=== PATIENT | female | born 1990 | race Caucasian/White ===

== ENCOUNTER → 2016-11-21 | Outpatient (REF) | payer OTHER ==
[~2016-11-21] MED LIST: BENT20TA PO; LORA10TA2 PO
[2016-11-21 14:03] LABS: CONTROL LINE HCG INT CTR LINE PRESENT
[2016-11-21 14:38] LABS: AMYLASE 70 U/L (25-115)
== END ==
LOC: M LAB REF 13:42
PROVIDERS: ATTEND Nurse Practitioner Family
DX: R10.11 Right upper quadrant pain (principal); K59.00 Constipation, unspecified

== ENCOUNTER → 2016-11-24 | Outpatient (REF) | payer OTHER | LOC: M LAB REF 15:40 | PROVIDERS: ATTEND Nurse Practitioner Family | DX: K59.00 Constipation, unspecified (principal) ==

== ENCOUNTER → 2016-12-26 | Outpatient (CLI) | payer OTHER | LOC: M LAB 14:08 | PROVIDERS: ATTEND Internal Medicine Gastroenterology | DX: R19.7 Diarrhea, unspecified (principal) ==

== ENCOUNTER → 2017-04-07 | Outpatient (REF) | payer OTHER ==
[2017-04-08 11:52] LABS: CONTROL LINE MONO INT CTR LINE PRESENT
== END ==
LOC: M LAB REF 16:32
PROVIDERS: ATTEND Nurse Practitioner Family
DX: J02.9 Acute pharyngitis, unspecified (principal)

== ENCOUNTER → 2017-04-11 | Outpatient (CLI) | payer OTHER ==
--- NOTE | 2017-04-12 09:09 | REP ---
Clinical: Acute bronchitis . Comparison: 06/06/2011 . Technique: PA and lateral. Findings: The mediastinum and cardiac silhouette are normal. The lung mccarty are clear and without acute consolidation, effusion, or pneumothorax. The skeletal structures are intact and normal. Impression: 1. No acute cardiopulmonary process. Signed by Philippe Rivas MD 04/11/2017 12:10 P
== END ==
LOC: M ADAMS 11:14
PROVIDERS: ATTEND Physician Assistant Medical
DX: R63.4 Abnormal weight loss (principal)

== ENCOUNTER → 2017-04-11 | Outpatient (REF) | payer OTHER, BC ==
[2017-04-11 12:48] LABS: BASO # 0.1 10^3/uL (0.0-0.2); BASO % 0.6 % (0.0-1.0); EOS # 0.3 10^3/uL (0.0-0.50); EOS % 3.4 % (0.0-3.0); IMMATURE GRANULOCYTE % 0.2 % (0-0); LYMPH % 21.8 % (24.0-44.0); MEAN CORPUSCULAR HEMOGLOBIN 30.3 pg (27.0-33.0); MEAN CORPUSCULAR HGB CONC 32.9 g/dl (32.0-36.5); MEAN CORPUSCULAR VOLUME 92.1 fl (80.0-96.0); MONO # 0.8 10^3/uL (0.0-0.8); MONO % 8.8 % (0.0-5.0); NEUTROPHILS # 5.9 10^3/uL (1.8-7.7); NEUTROPHILS % 65.2 % (36.0-66.0); PLATELET COUNT, AUTOMATED 326 10^3/uL (150-450); RED CELL DISTRIBUTION WIDTH 12.2 % (11.5-14.5)
[2017-04-11 13:19] LABS: CONTROL LINE MONO RF C INT CTR LINE PRESENT
== END ==
LOC: M LABDRWAD 12:32
PROVIDERS: ATTEND Physician Assistant Medical
DX: J20.9 Acute bronchitis, unspecified (principal); J02.9 Acute pharyngitis, unspecified

== ENCOUNTER 2017-05-24 09:58 | Outpatient (RCR) | payer OTHER, BC | END 2017-06-14 | LOC: M PT 09:58 | DX: Z51.89 Encounter for other specified aftercare (principal); M26.609 Unspecified temporomandibular joint disorder, unspecified side | CPT/HCPCS: 97010 ==

== ENCOUNTER 2017-06-20 10:01 | Outpatient (RCR) | payer OTHER, BC | END 2017-07-15 | LOC: M PT 10:01 | DX: Z51.89 Encounter for other specified aftercare (principal); M26.609 Unspecified temporomandibular joint disorder, unspecified side | CPT/HCPCS: 97010 ==

== ENCOUNTER → 2017-11-08 | Outpatient (CLI) | payer OTHER, BC | LOC: M ADAMS 09:37 | DX: M25.551 Pain in right hip (principal) | CPT/HCPCS: 73502 ==

== ENCOUNTER → 2018-01-30 | Outpatient (CLI) | payer OTHER, BC | LOC: M ADAMS 10:02 | DX: M25.572 Pain in left ankle and joints of left foot (principal); X58.XXXA Exposure to other specified factors, initial encounter | CPT/HCPCS: 73610 ==

== ENCOUNTER 2018-03-05 16:16 | Emergency (ER) | payer OTHER, BC | END 2018-03-05 17:08 | disposition home or self-care (01) | LOC: M ED 16:16 | DX: M76.61 Achilles tendinitis, right leg (principal) | CPT/HCPCS: 73610 ==

== ENCOUNTER 2018-03-09 14:28 | Emergency (ER) | payer OTHER | END 2018-03-09 15:01 | disposition home or self-care (01) | LOC: M ED 14:28 | DX: M76.61 Achilles tendinitis, right leg (principal); Z79.1 Long term (current) use of non-steroidal anti-inflammatories (NSAID) | CPT/HCPCS: 99282 ==

== ENCOUNTER → 2018-07-20 | Outpatient (REF) | payer OTHER, BC ==
[~2018-07-20] MED LIST changes: +LORA-243 PO; -LORA10TA2 PO; +NAPR-837 PO; +NAPR-855
== END ==
LOC: M LAB REF 08:18
PROVIDERS: ATTEND Physician Assistant
DX: R30.0 Dysuria (principal)

== ENCOUNTER 2018-08-06 19:36 | Emergency (ER) | payer OTHER ==
[~2018-08-06] VITALS: Ht 162.6 cm; Wt 68.2 kg
[2018-08-06] MEDS ORDERED: TETRACAINE 0.5% OPHTH SOLN 4ML OS ONE (20:45)
[2018-08-06] MEDS ORDERED: FLUORESCEIN OPHTH 1 MG STRIP OS ONE (21:00)
[2018-08-06 21:42] VITALS: BP 130/72
== END 2018-08-06 21:44 | disposition home or self-care (01) ==
LOC: M ED 19:36
DX: T52.4X1A Toxic effect of ketones, accidental (unintentional), initial encounter (principal); H10.212 Acute toxic conjunctivitis, left eye; H54.61 Unqualified visual loss, right eye, normal vision left eye; X58.XXXA Exposure to other specified factors, initial encounter; Y92.481 Parking lot as the place of occurrence of the external cause

== ENCOUNTER → 2019-12-17 | Outpatient (REF) | payer OTHER, SELFPAY | LOC: M WHC 12-16 14:15 | PROVIDERS: ATTEND Nurse Practitioner Women's Health | DX: Z12.4 Encounter for screening for malignant neoplasm of cervix (principal) | CPT/HCPCS: 87661; G0123 ==

== ENCOUNTER → 2020-03-30 | Outpatient (REF) | payer OTHER | LOC: M SFHCWAGY 10:32 | PROVIDERS: ATTEND Nurse Practitioner Family | DX: Z11.3 Encounter for screening for infections with a predominantly sexual mode of transmission (principal) ==

== ENCOUNTER → 2021-03-30 | Outpatient (REF) | payer OTHER ==
[2021-03-30 22:01] LABS: GC DNA AMPLIFICATION NEGATIVE (NEGATIVE)
== END ==
LOC: M SFHCWAGY 17:19
PROVIDERS: ATTEND Nurse Practitioner Women's Health
DX: Z11.3 Encounter for screening for infections with a predominantly sexual mode of transmission (principal)

== ENCOUNTER → 2021-05-19 | Outpatient (CLI) | payer OTHER | LOC: M PLAIMG 13:11 | PROVIDERS: ATTEND Physician Assistant | DX: R11.0 Nausea (principal); R10.9 Unspecified abdominal pain ==

== ENCOUNTER → 2021-06-16 | Outpatient (CLI) | payer OTHER | LOC: M RAD 08:57 | PROVIDERS: ATTEND Physician Assistant Medical | DX: R10.33 Periumbilical pain (principal) ==

== ENCOUNTER → 2021-07-10 | Outpatient (CLI) | payer OTHER ==
[~2021-07-10] MED LIST changes: +AZEL1SPR3 NARES; +CLAR10CA3 PO
== END ==
LOC: M LABSMTC 09:20
PROVIDERS: ATTEND Anesthesiology
DX: Z01.812 Encounter for preprocedural laboratory examination (principal); Z20.828 Contact with and (suspected) exposure to other viral communicable diseases

== ENCOUNTER 2021-07-15 11:37 | Day surgery (SDC) | payer OTHER ==
[~2021-07-15] VITALS: Ht 162.6 cm; Wt 72.6 kg
[~2021-07-15 11:37] MED LIST changes: +NS 1,000 ML IV ONE
[2021-07-15] MEDS ORDERED: LIDOCAINE 2% 100MG/5ML SDV (FOR ANES.) As Ordered ONE (11:51)
[2021-07-15] MEDS ORDERED: propofoL 500 MG/50 ML VIAL As Ordered ONE (11:51)
[2021-07-15] MEDS ORDERED: fentaNYL 100 MCG/2 ML INJECTION As Ordered ONE (11:51)
[2021-07-15] MEDS ORDERED: propofoL 200 MG/20 ML VIAL As Ordered ONE (13:56)
[2021-07-15 14:55] VITALS: BP 118/69
== END 2021-07-15 15:01 | disposition home or self-care (01) ==
LOC: M OPP 11:37
PROVIDERS: ATTEND Internal Medicine Gastroenterology
DX: Z86.010 Personal history of colon polyps (principal); R10.9 Unspecified abdominal pain; R14.0 Abdominal distension (gaseous); R19.7 Diarrhea, unspecified

== ENCOUNTER → 2021-10-26 | Outpatient (REF) | payer OTHER ==
[~2021-10-26] MED LIST changes: -NS 1,000 ML IV ONE
== END ==
LOC: M SFHCWAGY 16:52
PROVIDERS: ATTEND Obstetrics & Gynecology
DX: N89.8 Other specified noninflammatory disorders of vagina (principal)

== ENCOUNTER → 2022-04-21 | Outpatient (CLI) | payer OTHER ==
[2022-04-21 17:59] LABS: HCG, SERUM QUANTITATIVE < 2.6 MIU/ML (<4.2)
[2022-04-21 18:01] LABS: FREE T4 1.07 NG/DL (0.89-1.76); PROLACTIN 6.08 NG/ML; THYROID STIMULATING HORMONE 1.641 uIU/ML (0.55-4.78)
[2022-04-21 19:25] LABS: HEMOGLOBIN A1c 4.7 % (4.0-6.0)
[2022-04-25 23:08] LABS: 17 HYDROXY PROGESTERONE 332 ng/dL (.); DEHYDROEPIANDROSTERONE SULFATE 42.7 ug/dL (84.8-378.0); TESTOSTERONE FREE (DIRECT) 0.7 pg/mL (0.0-4.2); TESTOSTERONE TOTAL FOR T&D < 3.0 ng/dL (13-71)
== END ==
LOC: M PLALAB 15:06
PROVIDERS: ATTEND Nurse Practitioner Family
DX: N92.6 Irregular menstruation, unspecified (principal); Z12.4 Encounter for screening for malignant neoplasm of cervix; N89.8 Other specified noninflammatory disorders of vagina
CPT/HCPCS: 36415; 82627; 83036; 83498; 84146; 84402; 84403; 84439; 84443; 84702; G0123

== ENCOUNTER 2022-06-02 01:24 | Emergency (ER) | payer OTHER ==
[~2022-06-02] VITALS: Ht 160 cm; Wt 74.5 kg
[2022-06-02 01:25] VITALS: BP 120/60
== END 2022-06-02 02:04 | disposition left against medical advice (07) ==
LOC: M ED 01:24
DX: Z53.21 Procedure and treatment not carried out due to patient leaving prior to being seen by health care provider (principal)

== ENCOUNTER → 2022-09-08 | Outpatient (REF) | payer OTHER, BC | LOC: M SFHCWAGY 15:29 | PROVIDERS: ATTEND Nurse Practitioner Family | DX: N89.8 Other specified noninflammatory disorders of vagina (principal); Z73.9 Problem related to life management difficulty, unspecified ==

== ENCOUNTER → 2023-05-25 | Outpatient (REF) | payer BC | LOC: M LAB REF 13:21 | PROVIDERS: ATTEND Nurse Practitioner Family | DX: N73.9 Female pelvic inflammatory disease, unspecified (principal) ==

== ENCOUNTER → 2024-02-07 | Outpatient (CLI) | payer BC | LOC: M RAD 10:39 | PROVIDERS: ATTEND Orthopaedic Surgery | DX: M79.604 Pain in right leg (principal); M79.89 Other specified soft tissue disorders ==

== ENCOUNTER 2024-03-18 11:45 | Emergency (ER) | payer OTHER, BC ==
[~2024-03-18] VITALS: Ht 160 cm; Wt 81.8 kg
[2024-03-18] MEDS: ACETAMINOPHEN 325 MG TAB PO ONE (12:45)
[2024-03-18] MEDS: KETOROLAC 30 MG/ML 1ML VIAL IV ONE (13:27)
[2024-03-18] MEDS ORDERED: KETO10TAB PO (14:15)
[2024-03-18] MEDS ORDERED: TRAM50TA2 PO (14:31)
[2024-03-18 14:35] VITALS: BP 149/89; TEMP 98; O2SAT 98
== END 2024-03-18 14:42 | disposition home or self-care (01) ==
LOC: EDBD 11:45 → M ED 11:45
DX: S70.01XA Contusion of right hip, initial encounter (principal); W00.0XXA Fall on same level due to ice and snow, initial encounter; Y92.410 Unspecified street and highway as the place of occurrence of the external cause; Y93.89 Activity, other specified; Y99.0 Civilian activity done for income or pay
CPT/HCPCS: 73502; 99284; J1885

== ENCOUNTER → 2024-05-22 | Outpatient (REF) | payer BC ==
[~2024-05-22] MED LIST changes: +KETO10TAB PO; +TRAM50TA2 PO
[2024-05-23 13:17] LABS: Trichomonas vaginalis (AMP) NOT DETECTED (NEGATIVE)
[2024-05-23 13:41] LABS: GC DNA AMPLIFICATION NEGATIVE (NEGATIVE)
== END ==
LOC: M SFHCWAGY 09:49
PROVIDERS: ATTEND Nurse Practitioner Family
DX: N73.9 Female pelvic inflammatory disease, unspecified (principal); Z11.3 Encounter for screening for infections with a predominantly sexual mode of transmission

== ENCOUNTER → 2024-12-05 | Outpatient (CLI) | payer BC | LOC: M WHC 07:43 | PROVIDERS: ATTEND Nurse Practitioner Family | DX: N64.4 Mastodynia (principal); N63.10 Unspecified lump in the right breast, unspecified quadrant; R92.333 Mammographic heterogeneous density, bilateral breasts; N60.11 Diffuse cystic mastopathy of right breast; N60.12 Diffuse cystic mastopathy of left breast | CPT/HCPCS: 76641; 77066; G0279 ==

== ENCOUNTER → 2025-01-22 | Outpatient (CLI) | payer BC ==
[2025-01-22 09:13] VITALS: TEMP 98.4
[2025-01-22 10:20] VITALS: BP 118/76; O2SAT 100
== END ==
LOC: M WHCPRO 09:27
PROVIDERS: ATTEND Surgery
DX: N60.01 Solitary cyst of right breast (principal); N64.4 Mastodynia; Z91.89 Other specified personal risk factors, not elsewhere classified